=== PATIENT | female | born 1955 | race Caucasian/White ===

== ENCOUNTER → 2017-08-26 | Outpatient (CLI) | payer BC ==
[~2017-08-26] MED LIST: LEXAPRO20 MG PO; MELOXICAM15 MG PO; PERCOCET 325 MG1 TA3 PO; TRAMADOL 50MG T50 MG PO
--- NOTE | 2017-08-26 10:04 | RADIOLOGY REPORT PS360 ---
US RUQ-(ABD LTD)1ORGAN/QUAD/FU COMPARISON: None HISTORY: Right upper quadrant pain, indigestion, fever TECHNIQUE: Targeted ultrasound right upper quadrant FINDINGS: The liver is normal size and liver parenchyma appears normal except for a few scattered areas of fatty infiltration.. There is a cystic-appearing lesion in the left lobe of liver measuring 4.2 x 3.2 x 2.9 cm. The pancreas appears grossly normal. The gallbladder is normal size and there is mild to moderate biliary sludge in the dependent portion but no gallstones are seen. The common bile duct is normal caliber. Right kidney measures 9.7 x 4.0 x 6.5 cm and appears normal. IMPRESSION: 1. Moderate biliary sludge with no gallstones seen. 2. Benign-appearing cyst left lobe of the liver
== END ==
LOC: RAD 09:17
DX: R10.11 Right upper quadrant pain (principal)

== ENCOUNTER → 2017-09-04 | Outpatient (CLI) | payer BC ==
--- NOTE | 2017-09-04 15:57 | RADIOLOGY REPORT PS360 ---
[facility] HEPATOBILIARY SCAN HISTORY: RUQ PAIN ORDERING PHYSICIAN: Negro Adams MD PATIENT AGE: 62 years COMPARISON: Ultrasound 08/26/2017 DOSE: 8.05 mCi technetium Choletec Fatty meal with Ensure. No pain reported with the fatty meal FINDINGS: There is a photopenic area in the left lobe of the liver inferiorly corresponding to a cyst that was seen on a previous ultrasound. The liver otherwise has homogeneous activity. Activity is present in the gallbladder by 30 minutes. Activity is present in the small bowel by 15 minutes. The gallbladder ejection fraction is calculated to be 76% The patient did not report pain or other symptoms during the fatty meal. IMPRESSION: 1. No evidence of common or cystic duct obstruction with normal gallbladder ejection fraction 2. Photopenic area in the left lobe of the liver inferiorly corresponding to a cyst seen on the recent gallbladder ultrasound
== END ==
LOC: RAD 10:00
DX: R10.11 Right upper quadrant pain (principal)
CPT/HCPCS: A9537